=== PATIENT | female | born 1955 | race Caucasian/White ===

== ENCOUNTER 2016-11-04 18:37 | Emergency (ER) | payer BC ==
[~2016-11-04] VITALS: Ht 160 cm; Wt 45.2 kg
[2016-11-04 18:38] VITALS: BP 120/62
[2016-11-04] MEDS ORDERED: ATOR1TAB19 (18:58)
[2016-11-04] MEDS ORDERED: AMLO5TAB2 (18:58)
[2016-11-04] MEDS ORDERED: FOLI1TAB4 PO (18:58)
[2016-11-04] MEDS ORDERED: CLOP75TA2 (18:58)
[2016-11-04] MEDS ORDERED: TYLE325T5 PO (20:25)
[2016-11-04] MEDS ORDERED: ACETAMINOPHEN 325 MG TAB PO ONE (20:30)
[2016-11-04] MEDS ORDERED: diazePAM 5 MG TAB As Ordered ONE ×2 (20:55→20:56)
[2016-11-04] MEDS ORDERED: diazePAM 5 MG TAB PO ONE (21:30)
[2016-11-04] MEDS ORDERED: VALI2TAB PO (21:31)
--- NOTE | 2016-11-05 07:18 | REP ---
RIGHT WRIST, FOUR VIEWS: HISTORY: Fall. There is a nondisplaced fracture of the distal radius. There is no dislocation. There is narrowing of the first carpometacarpal joint space. IMPRESSION: Nondisplaced fracture of the distal radius. Signed by Zen Peters MD 11/05/2016 08:15 A
== END 2016-11-04 21:43 | disposition home or self-care (01) ==
LOC: M ED 18:37
DX: S62.101A Fracture of unspecified carpal bone, right wrist, initial encounter for closed fracture (principal); Z79.02 Long term (current) use of antithrombotics/antiplatelets; Z87.891 Personal history of nicotine dependence; W19.XXXA Unspecified fall, initial encounter; Y92.89 Other specified places as the place of occurrence of the external cause; Y93.89 Activity, other specified; Y99.9 Unspecified external cause status